=== PATIENT | male | born 1980 | race Caucasian/White ===

== ENCOUNTER 2023-03-09 13:54 | Emergency (ER) | payer OTHER, SELFPAY ==
[2023-03-09 13:58] VITALS: BP 130/90; PULSE 72; RESP 18; TEMP 36.7; O2SAT 99; BMI 31.9
--- NOTE | 2023-03-09 14:10 | ED.GENADUL1 ---
HPI - General Adult General Chief complaint: Back Pain/Injury Stated complaint: FLANK PAIN Time Seen by Provider: 03/09/23 13:56 Source: patient Mode of arrival: walk-in Limitations: no limitations History of Present Illness HPI narrative: patient is a 42-year-old male who presents to the emergency department for the evaluation of thoracic back pain for the last five days. He states the pain comes and goes. He denies any mechanism of injury, recent traumas or surgeries. He has had no fevers, chills, cough, congestion. He states pain is not worse with movement. He has been seen in this emergency department previously for low back pain related to spondylolisthesis. He has no history of heart or lung problems. He has no chest pain or shortness of breath complaints. He states the pain radiates from the thoracic spine around the bilateral flanks to the upper abdomen. He states it is a sharp pain that radiates from the spine and around to the abdomen and then resolves. He states pain is 8/10 at this time, he is resting comfortably on the cart and speaking easily. He has had no swelling to the arms or legs. He denies urinary symptoms. He has had no vomiting or diarrhea. No history of heart or lung problems, no DVT or PE. Related Data Previous Rx's Medication Instructions Recorded methocarbamol 750 mg tablet 750 mg PO TID PRN pain #20 tabs 03/09/23 naproxen sodium 550 mg tablet 550 mg PO BID PRN pain #10 tabs 03/09/23 Allergies Allergy/AdvReac Type Severity Reaction Status Date / Time No Known Drug Allergies Allergy Verified 03/09/23 13:58 Review of Systems ROS Constitutional Denies: fever or chills Ears, nose, mouth, and throat Denies: throat pain Cardiovascular Denies: chest pain Respiratory Denies: shortness of breath, cough or coughing up blood Gastrointestinal Reports: abdominal pain; Denies: nausea or vomiting Musculoskeletal Reports: back pain; Denies: neck pain, extremity pain or extremity swelling Integumentary/Breast Denies: rash Neurological Denies: headache Allergic/Immunologic Denies: hives Exam Narrative Exam Narrative: Gen.: Awake, alert, in no distress Head: Normocephalic, atraumatic ENT: Moist mucous membranes Respiratory: No respiratory distress, lungs clear bilaterally Cardio: Regular rate and rhythm Gastrointestinal: Abdomen is soft, nondistended and nontender to palpation back: Patient complains of pain at the level of the mid thoracic spine centrally, no obvious deformity or step-off, no bony tenderness to palpation Extremities: Moves extremities equally, no pedal edema Psych: Normal mood and affect Neuro: No focal neuro deficit Skin: Warm, dry, intact Constitutional Vital Signs, click to edit/add: Last Vital Signs Temp 98.1 F 03/09/23 13:58 Pulse 72 03/09/23 13:58 Resp 18 03/09/23 13:58 BP 130/90 03/09/23 13:58 Pulse Ox 99 03/09/23 13:58 O2 Del Method Room Air 03/09/23 13:58 Course Vital Signs Vital signs: Vital Signs Temperature 98.1 F 03/09/23 13:58 Pulse Rate 72 03/09/23 13:58 Respiratory Rate 18 03/09/23 13:58 Blood Pressure 130/90 03/09/23 13:58 Pulse Oximetry 99 03/09/23 13:58 Oxygen Delivery Method Room Air 03/09/23 13:58 Temperature 98.1 F 03/09/23 13:58 Pulse Rate 72 03/09/23 13:58 Respiratory Rate 18 03/09/23 13:58 Blood Pressure 130/90 03/09/23 13:58 Pulse Oximetry 99 03/09/23 13:58 Oxygen Delivery Method Room Air 03/09/23 13:58 Medical Decision Making MDM Narrative Medical decision making narrative: patient treated with Toradol and Norflex in the Emergency Room, lab studies including d-dimer, LFTs, urine specimen and creatinine are all within normal limits. Abdominal x-rays and chest x-ray with no evidence of acute cardiopulmonary changes. Patient with no bony point tenderness along the thoracic spine or posterior chest wall. He is discharged home with anti-inflammatory and muscle relaxant,, follow-up with PCP and return to the Emergency Room if symptoms change or worsen. Patient reevaluated by attending physician prior to discharge. Medical Records Medical records reviewed: Yes I reviewed the patient's medical records Lab Data Lab results reviewed: Yes I reviewed the patient's lab results Labs: Lab Results 03/09/23 03/09/23 03/09/23 Range/Units 14:05 14:25 14:40 WBC 7.6 (4.0-11.0) 10^3/uL RBC 4.83 (4.70-6.10) 10^6/uL Hgb 15.8 (14.0-18.0) g/dL Hct 47.7 (42.0-54.0) % MCV 98.8 H (80.0-94.0) fL MCH 32.7 (25.9-34.0) pg MCHC 33.1 (29.9-35.2) g/dL RDW 12.8 (11.0-15.0) % Plt Count 162 (150-450) 10^3/uL MPV 10.7 (9.5-13.5) fL Neut % (Auto) 55.7 (43.0-75.0) % Lymph % (Auto) 35.4 (20.5-60.0) % [place] % (Auto) 5.4 (1.7-12.0) % Eos % (Auto) 3.0 (0.9-7.0) % Baso % (Auto) 0.4 (0.2-2.0) % Neut # (Auto) 4.2 (1.4-6.5) 10^3/uL Lymph # (Auto) 2.7 (1.2-3.8) 10^3/uL [place] # (Auto) 0.4 (0.3-0.8) 10^3/uL Eos # (Auto) 0.2 (0.0-0.7) 10^3/uL Baso # (Auto) 0.0 (0.0-0.1) 10^3/uL Abs Immat Gran (auto) 0.01 (0.00-0.03) 10^3/uL Imm/Tot Granulo (auto) 0.1 (0.0-0.5) % D-Dimer 0.21 (<=0.59) mg/L FEU Sodium 139 (136-145) mmol/L Potassium 4.6 (3.5-5.1) mmol/L Chloride 106 (98-107) mmol/L Carbon Dioxide 28.8 (21.0-32.0) mmol/L Anion Gap 8.8 BUN 10.0 (7.0-18.0) mg/dL Creatinine 1.06 (0.70-1.30) mg/dL Est GFR ( Amer) >60 (>=60) Est GFR (Non-Af Amer) >60 (>=60) BUN/Creatinine Ratio 9.4 Glucose 111 H (74-106) mg/dL Calcium 9.0 (8.5-10.1) mg/dL Total Bilirubin 0.9 (0.2-1.0) mg/dL AST 30 (15-37) U/L ALT 26 (16-63) U/L Alkaline Phosphatase 92 (46-116) U/L Total Protein 7.8 (6.4-8.2) g/dL Albumin 4.4 (3.4-5.0) g/dL Globulin 3.4 g/dL Albumin/Globulin Ratio 1.3 Lipase 42.0 L (73.0-393.0) U/L Urine Color Lt. yellow (YELLOW) Urine Clarity Clear (CLEAR) Urine pH 7.0 (5.0-9.0) Ur Specific [place] 1.015 (1.005-1.025) Urine Protein Negative (NEG/TRACE) mg/dL Urine Glucose (UA) Negative (NEGATIVE) mg/dL Urine Ketones Negative (NEGATIVE) mg/dL Urine Occult Blood Negative (NEGATIVE) Urine Nitrite Negative (NEGATIVE) Urine Bilirubin Negative (NEGATIVE) Urine Urobilinogen 0.2 (0.2-1.0) EU/dL Ur Leukocyte Esterase Negative (NEGATIVE) Imaging Data Abdominal x-ray: Attestation: I have reviewed the pertinent imaging results. Radiologist's impression: Procedure: XR acute abdomen series EXAM: XR acute abdomen series HISTORY: Thoracic pain into bilateral flanks COMPARISON: None. TECHNIQUE: 4 view(s) of the abdomen. FINDINGS: No bowel distention. No free air or pneumatosis identified. Normal stool burden. No abnormal mass or calcification. The osseous and soft tissue structures are unremarkable. The lungs are clear. The cardiomediastinal silhouette is unremarkable. IMPRESSION: 1. No acute process. Electronically authenticated by: MORELIA THORNE Date: 03/09/2023 16:06 Discharge Plan Discharge Chief Complaint: Back Pain/Injury Clinical Impression: Thoracic back pain Patient Disposition: Home, Self-Care Time of Disposition Decision: 16:10 Condition: Good Prescriptions / Home Meds: New naproxen sodium 550 mg tablet 550 mg PO BID PRN (Reason: pain) Qty: 10 0RF methocarbamol 750 mg tablet 750 mg PO TID PRN (Reason: pain) Qty: 20 0RF Instructions: Thoracic Pain (ED) Stand Alone Forms: Portal Instructions Referrals: Physician,Non-Staff, MD [Primary Care Provider] - 1 week
[2023-03-09] MEDS: KETOROLAC TROMETHAMINE 30 MG/ML VIAL IVP (14:16)
[2023-03-09] MEDS: ORPHENADRINE 60 MG/ 2 ML VIAL IV (14:16)
[2023-03-09 14:41] LABS: Alanine Aminotransferase 26 U/L (16-63); Albumin Globulin Ratio 1.3; Albumin Level 4.4 g/dL (3.4-5.0); Alkaline Phosphatase 92 U/L (46-116); Anion Gap 8.8; Aspartate Amino Transferase 30 U/L (15-37); BUN Creatinine Ratio 9.4; Bilirubin Total 0.9 mg/dL (0.2-1.0); Carbon Dioxide 28.8 mmol/L (21.0-32.0); Chloride 106 mmol/L (98-107); Estimated GFR (African America >60 (>=60); Estimated GFR (Non-African Ame >60 (>=60); Globulin 3.4 g/dL; Glucose 111 mg/dL (74-106); Potassium 4.6 mmol/L (3.5-5.1); Sodium 139 mmol/L (136-145); Total Protein 7.8 g/dL (6.4-8.2)
[2023-03-09 14:53] LABS: Bilirubin Urine NEGATIVE (NEGATIVE); Blood Urine NEGATIVE (NEGATIVE); Clarity Urine CLEAR (CLEAR); Color Urine LT. YELLOW (YELLOW); Glucose Urine UA NEGATIVE (NEGATIVE); Ketones Urine NEGATIVE (NEGATIVE); Leukocyte Esterase Urine NEGATIVE (NEGATIVE); Nitrite Urine NEGATIVE (NEGATIVE); Protein Urine NEGATIVE (NEG/TRACE); Specific Gravity Urine 1.015 (1.005-1.025); Urobilinogen Urine 0.2 EU/dL (0.2-1.0)
[2023-03-09 14:58] LABS: Urine Microscopic Indicated NO
[2023-03-09 15:06] LABS: Basophils Percent Auto 0.4 % (0.2-2.0); Eosinophils Absolute Auto 0.2 10^3/uL (0.0-0.7); Hematocrit 47.7 % (42.0-54.0); Hemoglobin 15.8 g/dL (14.0-18.0); Immature Granulocytes Abs Auto 0.01 10^3/uL (0.00-0.03); Immature Granulocytes Pct Auto 0.1 % (0.0-0.5); Lymphocytes Absolute Auto 2.7 10^3/uL (1.2-3.8); Lymphocytes Percent Auto 35.4 % (20.5-60.0); Mean Corpuscular HGB Conc 33.1 g/dL (29.9-35.2); Mean Corpuscular Hemoglobin 32.7 pg (25.9-34.0); Mean Corpuscular Volume 98.8 fL (80.0-94.0); Mean Platelet Volume 10.7 fL (9.5-13.5); Monocytes Absolute Auto 0.4 10^3/uL (0.3-0.8); Monocytes Percent Auto 5.4 % (1.7-12.0); Neutrophils Absolute Auto 4.2 10^3/uL (1.4-6.5); Neutrophils Percent Auto 55.7 % (43.0-75.0); Platelet Count 162 10^3/uL (150-450); Red Blood Count 4.83 10^6/uL (4.70-6.10); Red Cell Distribution Width 12.8 % (11.0-15.0); White Blood Count 7.6 10^3/uL (4.0-11.0)
[2023-03-09 15:21] LABS: D Dimer 0.21 mg/L FEU (<=0.59)
--- NOTE | 2023-03-09 15:27 | XR_ITS ---
The [address] [address] Patient Name: VALENTIN SIDHU MRN: [id number] date: 1980 Sex: M Assigned Patient Location: ER Current Patient Location: ER Accession/Order Number: [id number] Exam Date: 03/09/2023 15:40 Report Date: 03/09/2023 16:06 At the request of: SAUL ELLIS Procedure: XR acute abdomen series EXAM: XR acute abdomen series HISTORY: Thoracic pain into bilateral flanks COMPARISON: None. TECHNIQUE: 4 view(s) of the abdomen. FINDINGS: No bowel distention. No free air or pneumatosis identified. Normal stool burden. No abnormal mass or calcification. The osseous and soft tissue structures are unremarkable. The lungs are clear. The cardiomediastinal silhouette is unremarkable. XR/XR acute abdomen series IMPRESSION: 1. No acute process. Electronically authenticated by: MORELIA THORNE Date: 03/09/2023 16:06
== END 2023-03-09 16:32 | disposition home or self-care (01) ==
PROVIDERS: Physician Assistant; Emergency Provider Emergency Medicine Emergency Medical Services
DX: M54.6 Pain in thoracic spine (principal)
CPT/HCPCS: 36415; 74022; 80053; 81003; 83690; 85025; 85378; 96374; 96375; 99285

== ENCOUNTER 2023-08-13 11:49 | Emergency (ER) | payer OTHER, SELFPAY ==
[2023-08-13 11:53] VITALS: BP 135/85; PULSE 83; RESP 18; TEMP 36.6; O2SAT 98; BMI 31.6
--- NOTE | 2023-08-13 12:08 | CT_ITS ---
The [address] [address] Patient Name: VALENTIN SIDHU MRN: [id number] date: 1980 Sex: M Assigned Patient Location: ER Current Patient Location: ER Accession/Order Number: [id number] Exam Date: 08/13/2023 12:14 Report Date: 08/13/2023 12:28 At the request of: YESICA TELLO Procedure: CT head/brain wo con CT head without contrast, 08/13/2023. HISTORY: Headache. Facial pain. Paresthesias on left side of face. COMPARISON: None. TECHNIQUE: Noncontrast axial CT images obtained through the head. Reconstructions were obtained in the sagittal and coronal planes. Dose reduction techniques were achieved by using automated exposure control and/or adjustment of mA and/or kV according to patient size and/or use of iterative reconstruction technique. FINDINGS: Paranasal sinuses are clear. Mastoid air cells are clear. Skull base is intact. No skull lesion. Orbital contents are unremarkable. Extracranial soft tissue structures are unremarkable. The ventricles are normal in size. No hydrocephalus. No extra-axial fluid collections. No acute intracranial hemorrhage. No mass. Khan matter and white matter differentiation is intact. No cerebral edema. CT/CT head/brain wo con IMPRESSION: Normal CT of the head. Electronically authenticated by: GABE BRADLEY Date: 08/13/2023 12:28
--- NOTE | 2023-08-13 12:08 | ED_ITS ---
HPI - General Adult General Chief complaint: Headache Stated complaint: L SIDE HEAD PAIN Time Seen by Provider: 08/13/23 11:56 Source: patient Mode of arrival: walk-in Limitations: no limitations History of Present Illness HPI narrative: 43-year-old male presents to the emergency department for pain on the left side of his head. It started 3 days ago and was not associated with any injury. He points to the angle of his jaw and it goes up onto his scalp and it feels like a cat of scratching him on his scalp. No ear drainage but his ear hurts. No weakness or numbness in his extremities. He has never had shingles. Related Data Previous Rx's Medication Instructions Recorded methocarbamol 750 mg tablet 750 mg PO TID PRN pain #20 tabs 03/09/23 naproxen sodium 550 mg tablet 550 mg PO BID PRN pain #10 tabs 03/09/23 ibuprofen 800 mg tablet 800 mg PO Q8H PRN pain #20 tabs 08/13/23 Allergies Allergy/AdvReac Type Severity Reaction Status Date / Time codeine AdvReac Intermediate Agitated Verified 08/13/23 11:53 Review of Systems ROS Narrative A ten point review of systems is negative except as noted above. Exam Narrative Exam Narrative: Nurses note and vital signs reviewed and patient is not hypoxic. General: The patient appears well and in no apparent distress. Patient is re sting comfortably on cart. Skin: Warm, dry, no pallor noted. There is no rash noted. Head: Normocephalic, atraumatic jaw has full range of motion. There is no erythema or rash on his face. There is no swelling. EOMI. PERRL Ears, Nose, Mouth, and Throat: oral mucosa is moist. Nares patent. Mouth without vesicles. Ear canals patent. Tm's without Erythema Cardiovascular: Regular Rate and Rhythm Respiratory: Patient is in no distress, no accessory muscle use, lungs are clear to auscultation, no wheezing, rales or rhonchi Back: non-tender GI: no tenderness to palpation, no masses appreciated. No rebound, guarding, or rigidity noted. Musculoskeletal: The patient has no evidence of calf tenderness, no pitting edema, symmetrical pulses noted bilaterally Neurological: A&O, normal speech; motor strength intact in his facial muscles. Psychiatric: Cooperative Constitutional Vital Signs, click to edit/add: Last Vital Signs Temp 97.8 F 08/13/23 11:53 Pulse 83 08/13/23 11:53 Resp 18 08/13/23 11:53 BP 135/85 08/13/23 11:53 Pulse Ox 98 08/13/23 11:53 Course Vital Signs Vital signs: Vital Signs Temperature 97.8 F 08/13/23 11:53 Pulse Rate 83 08/13/23 11:53 Respiratory Rate 18 08/13/23 11:53 Blood Pressure 135/85 08/13/23 11:53 Pulse Oximetry 98 08/13/23 11:53 Temperature 97.8 F 08/13/23 11:53 Pulse Rate 83 08/13/23 11:53 Respiratory Rate 18 08/13/23 11:53 Blood Pressure 135/85 08/13/23 11:53 Pulse Oximetry 98 08/13/23 11:53 Medical Decision Making MDM Narrative Medical decision making narrative: CT is negative. Physical exam is normal. There is no rash to suggest herpes zoster but he was advised that if he develops a rash she return to the emergency department or contact his PCP. He does not want anything stronger for pain. Treatment diagnosis and follow-up were discussed with the patient Differential Diagnosis Differential Diagnosis: Headache, herpes zoster, neuralgia Imaging Data CT scan - head: Radiologist's impression: ITS Impressions Head CT 08/13/23 12:08 IMPRESSION: Normal CT of the head. Electronically authenticated by: GABE BRADLEY Date: 08/13/2023 12:28 Discharge Plan Discharge Chief Complaint: Headache Clinical Impression: Cephalgia Patient Disposition: Home, Self-Care Time of Disposition Decision: 13:31 Condition: Good Mode of Transportation: Private Vehicle Prescriptions / Home Meds: New ibuprofen 800 mg tablet 800 mg PO Q8H PRN (Reason: pain) Qty: 20 0RF No Action naproxen sodium 550 mg tablet 550 mg PO BID PRN (Reason: pain) Qty: 10 0RF methocarbamol 750 mg tablet 750 mg PO TID PRN (Reason: pain) Qty: 20 0RF Instructions: Acute Headache (ED) Stand Alone Forms: Portal Instructions Referrals: Physician,Non-Staff, MD [Primary Care Provider] - 1 week
== END 2023-08-13 13:38 | disposition home or self-care (01) ==
PROVIDERS: Emergency Provider Emergency Medicine
DX: R51.9 Headache, unspecified (principal)
CPT/HCPCS: 70450; 99284

== ENCOUNTER 2024-04-19 11:32 | Emergency (ER) | payer OTHER, SELFPAY ==
[2024-04-19 11:34] VITALS: BP 117/67; PULSE 111; TEMP 36.6; O2SAT 97; BMI 29.9
--- OUTSIDE RECORDS SUMMARY | 2024-04-19 11:39 | XMS_ITS | CCD ---
Author Organization [facility] Care Team Providers Care Courtroom Clerk Name Role Phone DR SISI THAKKAR Attending Unavailable BIJAN, DR SISI Curtis Consulting Unavailable DR SISI THAKKAR Admitting Unavailable REQUEST, NONE LISTED Primary Care Unavaila Morgan Chowdhury Consulting Unavailable Lucy Connelly Unavailable Luzma Albert Unavailable Allergies Allergy Classification Reported Allergen(s) Allergy Type Date of Onset Reaction(s) Facility (1 source) Codeine Drug Allergy 3 [facility] (1 source) Ketorolac Drug Allergy 3 [facility] (2 sources) Codeine Drug Allergy vomiting [facility] Other (2 sources) traMADol Drug Allergy anger [facility] Other (1 source) Shellfish Drug allergy only when consumed, hives [facility] [employer] Other Problems Active Problems Problem Classification Problem Date Documented Da te Episodic/Chronic Substance-related disorders (1 source) Nicotine dependence, cigarettes, uncomplicated; Translations: [NICOTINE DEPEND CIGARETTES UNCOMP] Onset: 11-19-2020 Chronic Past or Other Problems Problem Classification Problem Date Documented Da te Episodic/Chronic Immunizations and screening for infectious disease (1 source) Contact with and (suspected) exposure to other viral communicable diseases; Translations: [Contact with and (suspected) exposure to other viral communicable diseases Z20.828] Onset: 04-15-2021 Resolved: 04-15-2021 Episodic Other upper respiratory disease (3 sources) Dysphonia; Translations: [DYSPHONIA] Onset: 11-18-2020 Episodic Other upper respiratory infections (1 source) Acute laryngitis; Translations: [ACUTE LARYNGITIS] Onset: 11-19-2020 Episodic Viral infection (1 source) COVID-19; Translations: [COVID-19 U07.1] Onset: 04-15-2021 Resolved: 04-15-2021 Results Test Name Value Interpretation Reference Range Facil ity XR NECK SOFT TISSUEon 2020 XR NECK SOFT TISSUE EXAM: XR NECK SOFT TISSUE HISTORY: Dyspnea COMPARISON: None. TECHNIQUE: 2 views submitted FINDINGS: There is no evidence for prevertebral soft tissue swelling. No epiglottic enlargement is appreciated. No soft tissue inflammation visualized. There is no evidence for subglottic stenosis on the AP radiograph. No destructive osseous lesion is visualized. IMPRESSION: Unremarkable exam. Electronically authenticated by: MORGAN GROSS Date: 2020-11-18 02:47 Normal [facility] Vital Signs Date Time Vital Sign Value Performing Clinician Facility 08-13-2023 11:05-0500 Body height 177.8 cm Luzma Bety Other [facility] Other 08-13-2023 11:05-0500 Body mass index (BMI) [Ratio] 32.14 kg/m2 Luzma Bety Other [facility] Other 08-13-2023 11:05-0500 Body temperature 97.9 [degF] Luzma Bety Other [facility] Other 08-13-2023 11:05-0500 Body weight 101.61 kg Luzma Bety Other [facility] Other 08-13-2023 11:05-0500 Diastolic blood pressure 82 mm[Hg] Luzma Bety Other [facility] Other 08-13-2023 11:05-0500 Respiratory rate 18 /min Luzma Bety Other [facility] Other 08-13-2023 11:05-0500 SaO2% (BldA) [Mass fraction] 99 % Luzma Bety Other [facility] Other 08-13-2023 11:05-0500 Systolic blood pressure 131 mm[Hg] Luzmaankit Daleyb Other [facility] Other 04-15-2021 16:30-0400 Body height 177.8 cm Lucy Ginty Other [facility] Other 04-15-2021 16:30-0400 Body mass index (BMI) [Ratio] 28.55 kg/m2 Lucy Ginty Other [facility] Other 04-15-2021 16:30-0400 Body weight 90.27 kg Lucy Ginty Other [facility] Other Encounters Encounter Date Encounter Type Care Provider Facility Start: 08-13-2023 End: 08-13-2023 ambulatory Luzma Daleyb Other [facility] Other Start: 08-13-2023 Patient encounter procedure Luzma Bety [facility] Start: 04-15-2021 Office outpatient vi sit 15 minutes Lucy Ginty [facility] Start: 11-18-2020 End: 11-18-[address] SISI THAKKAR Facility: Payers Date Payer Category Payer Unknown [id number] 1958 Unknown [id number] Unknown [id number] Social History Date Type Detail Facility Sex Assigned At [facility] Other Evaluation note 08-13-2023 Note Date & Type Note Facility 08-13-2023 Evaluation note Encounter Date Diagnosis Assessment Notes Aug, Other Patient is a 43-year-old male that presents to urgent care complaining of pain on the top of the left side of the head with pain near the left ear. Patient endorses dizziness and feeling disoriented but denies any facial droop, unilateral weakness, numbness or tingling. Patient is alert and oriented during the visit. Patient denies any recent injury or history of vertigo. He denies any other illnesses. He states he is otherwise healthy. Patient states the pain occurred suddenly today and feels like his head is burning on fire and that the dizziness started this morning. Patient was referred to the ER at this time for the dizziness and complaints of disorientation. Patient did want to drive himself, did not want squad called. [facility] Other Evaluation note 04-15-2021 Note Date & Type Note Facility 04-15-2021 Evaluation note Encounter Date Diagnosis Assessment Notes Apr, Contact with and (suspected) exposure to other viral communicable diseases (ICD-10 - Z20.828) Apr, COVID-19 (ICD-10 - U07.1) Rapid COVID test performed in office today. Advised patient that test was positive. Instructed patient to isolate per CDC guidelines for 10 days from symptom onset. May return to work/activities outside home after isolation period as long as symptoms are improving and has been afebrile for 24 hours without use of antipyretic. Advised patient that health dept. will be in contact as results are reported to them. Advised patient that treatment of COVID is with viral supportive care. Tylenol/Motrin as needed for body aches/fever. Increase fluids and rest. Encouraged use of cool mist humidifier. Follow-up with PCP to advise of positive result and further management need. Immediate eval for SOB, difficulty, chest pain, fevers that do not break with antipyretic or any other concerning symptoms as reviewed on patient education handout. Patient verbalizes understanding and is agreeable to treatment plan. Patient left in stable condition Apr, Other Additional time spent conducting pre-visit phone call, screening for symptoms, instructions on social distancing, application and removal of PPE, and cleaning of examination room, equipment and supplies was preformed. Patient education given for testing methodology and results. Patient care instructions given in writting by [facility] Care At Home document [facility] Other History general Narrative - Reported Note Date & Type Note Facility History general Narrative - Reported Type Medical History DDD/DD Medical History spondylolithesis Surgical History tonsillectomy [facility] Other Summary Purpose Family History No Family History Records Found Advance Directives No Advanced Directives Records Found Additional Source Comments (unrecognized sect ion and content) No Status Records Found INFORMATION SOURCE (unrecogn ized section and content) DATE CREATED AUTHOR 10/19/2021 [facility] REASON FOR VISIT (unrecogniz ed section and content) #27 SILVER URIARTE ESCAPE COVID EXPOSURE, BODYACHES, LOSS OF SMELLLEFT EAR PAIN FOR RECORDS PERTAINING TO PATIENTS WHO ARE OR HAVE BEEN ENROLLED IN A CHEMICAL DEPENDENCY/SUBSTANCEABUSE PROGRAM, SOME INFORMATION MAY BE OMITTED. This clinical summary was aggregated from multiple sources. Caution should be exercised in using it in the provision of clinical care. This summary normalizes information from multiple sources, and as a consequence, information in this document may materially change the coding, format and clinical context of patient data. In addition, data may be omitted in some cases. CLINICAL DECISIONS SHOULD BE BASED ON THE PRIMARY CLINICAL RECORDS. [employer] [facility]. provides no warranty or guarantee of the accuracy or completeness of information in this document.
[2024-04-19] MEDS: FAMOTIDINE/PF 20 MG/2 ML VIAL IV (11:51)
[2024-04-19] MEDS: METHYLPREDNISOLONE SOD SUCC PF 125 MG/2 ML VIAL IVP (11:51)
[2024-04-19 11:53] LABS: Basophils Percent Auto 0.3 % (0.2-2.0); Eosinophils Absolute Auto 0.1 10^3/uL (0.0-0.7); Eosinophils Percent Auto 1.3 % (0.9-7.0); Hematocrit 52.9 % (42.0-54.0); Hemoglobin 18.2 g/dL (14.0-18.0); Immature Granulocytes Abs Auto 0.01 10^3/uL (0.00-0.03); Immature Granulocytes Pct Auto 0.1 % (0.0-0.5); Lymphocytes Absolute Auto 3.1 10^3/uL (1.2-3.8); Lymphocytes Percent Auto 39.9 % (20.5-60.0); Mean Corpuscular HGB Conc 34.4 g/dL (29.9-35.2); Mean Corpuscular Hemoglobin 32.7 pg (25.9-34.0); Mean Platelet Volume 10.2 fL (9.5-13.5); Monocytes Absolute Auto 0.3 10^3/uL (0.3-0.8); Monocytes Percent Auto 3.9 % (1.7-12.0); Neutrophils Absolute Auto 4.2 10^3/uL (1.4-6.5); Neutrophils Percent Auto 54.5 % (43.0-75.0); Platelet Count 221 10^3/uL (150-450); Red Blood Count 5.57 10^6/uL (4.70-6.10); White Blood Count 7.6 10^3/uL (4.0-11.0)
[2024-04-19 12:14] LABS: Alanine Aminotransferase 44 U/L (16-63); Albumin Globulin Ratio 1.1; Albumin Level 4.1 g/dL (3.4-5.0); Alkaline Phosphatase 112 U/L (46-116); Anion Gap 14.8; Aspartate Amino Transferase 19 U/L (15-37); BUN Creatinine Ratio 11.5; Bilirubin Total 0.4 mg/dL (0.2-1.0); Calcium 9.9 mg/dL (8.5-10.1); Carbon Dioxide 25.5 mmol/L (21.0-32.0); Chloride 104 mmol/L (98-107); Estimated GFR (African America >60 (>=60 mL/min/1.73m^2); Estimated GFR (Non-African Ame >60 (>=60 mL/min/1.73m^2); Globulin 3.9 g/dL; Glucose 135 mg/dL (74-106); Potassium 4.3 mmol/L (3.5-5.1); Sodium 140 mmol/L (136-145)
--- NOTE | 2024-04-19 14:24 | ED_ITS ---
HPI HPI - General Adult General Chief complaint: Weakness Stated complaint: EXTREMITY SWELLING, PAIN, RASH Time Seen by Provider: 04/19/24 11:43 Source: patient Mode of arrival: walk-in Limitations: no limitations History of Present Illness HPI narrative: The patient presented to us after he just had dinner yesterday from his regular [email or web address] restaurant, the patient mentioned that few hours after that almost 2 hours that he started having some itching in his upper and lower extremities with sensation of swelling in his fingers He denies any itching at any time or any other place or any rash that developed other than his feet and his hands he denies any difficulty breathing or any tongue swelling The patient denies any exposure to any new environmental changes he also denies any exposure to any new drug or medication Related Data Previous Rx's ?Medication ?Instructions ?Recorded methocarbamol 750 mg tablet 750 mg PO TID PRN pain #20 tabs 03/09/23 naproxen sodium 550 mg tablet 550 mg PO BID PRN pain #10 tabs 03/09/23 ibuprofen 800 mg tablet 800 mg PO Q8H PRN pain #20 tabs 08/13/23 diphenhydramine HCl 25 mg tablet 25 mg PO TID PRN allergic reaction 04/19/24 (Benadryl Allergy) #10 tabs famotidine 20 mg tablet (Pepcid) 20 mg PO BID #10 tabs 04/19/24 prednisone 20 mg tablet 40 mg (2 x 20 mg) PO DAILY 3 days 04/19/24 #6 tabs Allergies Allergy/AdvReac Type Severity Reaction Status Date / Time codeine AdvReac Intermediate Agitated Verified 08/13/23 11:53 Opioid HPI Opioid Management Most Recent Opioid Data: Last Pain Scale 6 03/09/23 15:10 03/09/23 Review of Systems ROS Status of ROS 10 or more systems reviewed and unremark able except as noted in history and below PFSH PFSH Social History Little interest or pleasure in doing things: not at all Feeling down, depressed, or hopeless: not at all Exam Narrative Exam Narrative: Nurses notes and vital signs reviewed and patient is not hypoxic. Skin examination: The patient have a macular rash on the dorsum of the foot bilaterally as well as the hand but there is no other rash that was detected on the skin the patient have a good pulse bilaterally anterior tibial in both feet as well as in his radial General: Well-appearing and in no apparent distress. Skin: Warm, dry, no pallor noted. No rash. Head: Normocephalic, atraumatic. Neck: Supple, non-tender. Eye: Pupils are equal, round and EOMI. No scleral icterus. Ears, Nose, Mouth, and Throat: TM are clear, no nasal mucosal hypertrophy. Oral mucosa is moist, no posterior oropharynx erythema, uvula is mid-line Cardiovascular: Regular Rate and Rhythm without murmur, gallop or rub. Respiratory: No accessory muscle use or respiratory distress. Lungs are clear to auscultation, no wheezing, rales or rhonchi Chest Wall: no tenderness Back: No midline thoracic or lumbar vertebral tenderness. No CVA tenderness Musculoskeletal: normal ROM, no calf or popliteal tenderness, no lower extremity edema/swelling GI: Abdomen is soft, non-distended. Normal bowel sounds. No masses appreciated. No tenderness to palpation. No rebound, guarding, or rigidity noted. Neurological: A&O x4. No cranial nerve dysfunction observed. No truncal ataxia. Moves all extremities. Sensation intact. Psychiatric: Cooperative and interactive. Normal mood and affect. Constitutional Vital Signs, click to edit/add: Last Vital Signs Temp 97.9 F 04/19/24 11:34 Pulse 111 H 04/19/24 11:34 Resp 18 04/19/24 11:34 BP 117/67 04/19/24 11:34 Pulse Ox 97 04/19/24 11:34 O2 Del Method Room Air 04/19/24 11:34 Course Vital Signs Vital signs: Vital Signs Temperature 97.9 F 04/19/24 11:34 Pulse Rate 111 H 04/19/24 11:34 Respiratory Rate 18 04/19/24 11:34 Blood Pressure 117/67 04/19/24 11:34 Pulse Oximetry 97 04/19/24 11:34 Oxygen Delivery Method Room Air 04/19/24 11:34 Temperature 97.9 F 04/19/24 11:34 Pulse Rate 111 H 04/19/24 11:34 Respiratory Rate 18 04/19/24 11:34 Blood Pressure 117/67 04/19/24 11:34 Pulse Oximetry 97 04/19/24 11:34 Oxygen Delivery Method Room Air 04/19/24 11:34 Medical Decision Making [facility] Narrative Medical decision making narrative: The patient blood workup CBC and chemistry showed no acute pathology His presentation with itching could be secondary to allergic reaction although I did explain to the patient that I provided him initially with a steroid after which she was feeling much better he tried some Benadryl before arrival. The rash is gone but he still having this feeling of swelling in his fingers and toes Explained to the patient that right now we will continue the prednisone for the next 3 days with instruction to hydrate well and come back in case of any worsening of symptoms and monitor for any new symptoms The patient is to follow up with primary care physician in next 2-3 days or to return to the emergency department should any of the signs or symptoms worsen or new symptoms develop. The patient agrees with the following Diagnosis and Treatment plan and the patient will be discharged home. Lab Data Labs: Lab Results 04/19/24 Range/Units 11:41 WBC 7.6 (4.0-11.0) 10^3/uL RBC 5.57 (4.70-6.10) 10^6/uL Hgb 18.2 H (14.0-18.0) g/dL Hct 52.9 (42.0-54.0) % MCV 95.0 H (80.0-94.0) fL MCH 32.7 (25.9-34.0) pg MCHC 34.4 (29.9-35.2) g/dL RDW 12.0 (11.0-15.0) % Plt Count 221 (150-450) 10^3/uL MPV 10.2 (9.5-13.5) fL Neut % (Auto) 54.5 (43.0-75.0) % Lymph % (Auto) 39.9 (20.5-60.0) % [place] % (Auto) 3.9 (1.7-12.0) % Eos % (Auto) 1.3 (0.9-7.0) % Baso % (Auto) 0.3 (0.2-2.0) % Neut # (Auto) 4.2 (1.4-6.5) 10^3/uL Lymph # (Auto) 3.1 (1.2-3.8) 10^3/uL [place] # (Auto) 0.3 (0.3-0.8) 10^3/uL Eos # (Auto) 0.1 (0.0-0.7) 10^3/uL Baso # (Auto) 0.0 (0.0-0.1) 10^3/uL Abs Immat Gran (auto) 0.01 (0.00-0.03) 10^3/uL Imm/Tot Granulo (auto) 0.1 (0.0-0.5) % Sodium 140 (136-145) mmol/L Potassium 4.3 (3.5-5.1) mmol/L Chloride 104 (98-107) mmol/L Carbon Dioxide 25.5 (21.0-32.0) mmol/L Anion Gap 14.8 BUN 15.0 (7.0-18.0) mg/dL Creatinine 1.30 (0.70-1.30) mg/dL Est GFR ( Amer) >60 (>=60 mL/min/1.73m^2) Est GFR (Non-Af Amer) >60 (>=60 mL/min/1.73m^2) BUN/Creatinine Ratio 11.5 Glucose 135 H (74-106) mg/dL Calcium 9.9 (8.5-10.1) mg/dL Total Bilirubin 0.4 (0.2-1.0) mg/dL AST 19 (15-37) U/L ALT 44 (16-63) U/L Alkaline Phosphatase 112 (46-116) U/L Total Protein 8.0 (6.4-8.2) g/dL Albumin 4.1 (3.4-5.0) g/dL Globulin 3.9 g/dL Albumin/Globulin Ratio 1.1 Discharge Plan Discharge Chief Complaint: Weakness Clinical Impression: Allergic reaction Patient Disposition: Home, Self-Care Time of Disposition Decision: 13:09 Condition: Good Prescriptions / Home Meds: New prednisone 20 mg tablet 40 mg PO DAILY 3 Days Qty: 6 0RF famotidine [Pepcid] 20 mg tablet 20 mg PO BID Qty: 10 0RF diphenhydramine HCl [Benadryl Allergy] 25 mg tablet 25 mg PO TID PRN (Reason: allergic reaction) Qty: 10 0RF No Action naproxen sodium 550 mg tablet 550 mg PO BID PRN (Reason: pain) Qty: 10 0RF methocarbamol 750 mg tablet 750 mg PO TID PRN (Reason: pain) Qty: 20 0RF ibuprofen 800 mg tablet 800 mg PO Q8H PRN (Reason: pain) Qty: 20 0RF Print Language: Hong Konger Instructions: General Allergic Reaction (ED) Referrals: Physician,Non-Staff, MD [Primary Care Provider] - 1 week Discharge Date/Time: 04/19/24 13:17
== END 2024-04-19 13:17 | disposition home or self-care (01) ==
PROVIDERS: Emergency Provider Emergency Medicine
DX: T78.40XA Allergy, unspecified, initial encounter (principal)
CPT/HCPCS: 36415; 80053; 85025; 96374; 96375; 99284; J2919

== ENCOUNTER 2024-04-20 15:55 | Emergency (ER) | payer OTHER, SELFPAY ==
[2024-04-20 16:01] VITALS: BP 129/75; PULSE 87; TEMP 36.6; O2SAT 100; BMI 30.1
--- OUTSIDE RECORDS SUMMARY | 2024-04-20 16:03 | XMS_ITS | CCD ---
Author Organization [facility] Care Team Providers Care Web Programmer Name Role Phone DR SISI THAKKAR Attending Unavailable BIJAN, DR SISI Curtis Consulting Unavailable DR SISI THAKKAR Admitting Unavailable REQUEST, NONE LISTED Primary Care Unavaila Morgan Chowdhury Consulting Unavailable Lucy Connelly Unavailable Luzma Albert Unavailable Allergies Allergy Classification Reported Allergen(s) Allergy Type Date of Onset Reaction(s) Facility (1 source) Codeine Drug Allergy 3 [facility] (1 source) Ketorolac Drug Allergy 3 [facility] (2 sources) Codeine Drug Allergy vomiting [facility] Other (2 sources) traMADol Drug Allergy anger [facility] Other (1 source) Shellfish Drug allergy only when consumed, hives [facility] [employer] Other Problems Active Problems Problem Classification Problem [...] by: MORGAN GROSS Date: 2020-11-18 02:[address] [facility] Vital Signs Date Time Vital Sign Value Performing Clinician Facility 08-13-2023 11:05-0500 Body height 177.8 cm Luzma Bety Other [facility] Other 08-13-2023 11:05-0500 Body mass index (BMI) [Ratio] 32.14 kg/m2 Luzma Bety Other [facility] Other 08-13-2023 11:05-0500 Body temperature 97.9 [degF] Luzma Bety Other [facility] Other 08-13-2023 11:05-0500 Body weight 101.61 kg Luzma Bety Other [facility] Other 08-13-2023 11:05-0500 Diastolic blood pressure 82 mm[Hg] Luzma Bety Other [facility] Other 08-13-2023 11:05-0500 Respiratory rate 18 /min Luzma Bety Other [facility] Other 08-13-2023 11:05-0500 SaO2% (BldA) [Mass fraction] 99 % Luzma Bety Other [facility] Other 08-13-2023 11:05-0500 Systolic blood pressure 131 mm[Hg] Luzmaankit Daleyb Other [facility] Other 04-15-2021 16:30-0400 Body height 177.8 cm Lucy Ginty Other [facility] Other 04-15-2021 16:30-0400 Body mass index (BMI) [Ratio] 28.55 kg/m2 Lucy Ginty Other [facility] Other 04-15-2021 16:30-0400 Body weight 90.27 kg Lucy Ginty Other [facility] Other Encounters Encounter Date Encounter Type Care Provider Facility Start: 08-13-2023 End: 08-13-2023 ambulatory Luzma Daleyb Other [facility] Other Start: 08-13-2023 Patient encounter procedure Luzma Bety [facility] Start: 04-15-2021 Office outpatient vi sit 15 minutes Lucy Ginty [facility] Start: 11-18-2020 End: 11-18-[address] SISI THAKKAR Facility: Payers Date Payer Category Payer Unknown [id number] 1958 Unknown [id number] Unknown [id number] Social History Date Type Detail Facility Sex Assigned At [facility] Other Evaluation note 08-13-2023 Note Date & [...] drive himself, did not want squad called. [facility] Other Evaluation note 04-15-2021 Note Date & [...] Patient care instructions given in writting by [facility] At Home document [facility] Other History general Narrative - Reported Note Date & Type Note Facility History general Narrative - Reported Type Medical History DDD/DD Medical History spondylolithesis Surgical History tonsillectomy [facility] Other Summary Purpose Family History No Family History Records Found Advance Directives No Advanced Directives Records Found Additional Source Comments (unrecognized sect ion and content) No Status Records Found INFORMATION SOURCE (unrecogn ized section and content) DATE CREATED AUTHOR 10/19/2021 [facility] REASON FOR VISIT (unrecogniz ed section and [...] BE BASED ON THE PRIMARY CLINICAL RECORDS. [employer] [facility]. provides no warranty or guarantee of the accuracy or completeness of information in this document.
--- NOTE | 2024-04-20 16:25 | XR_ITS ---
The [address] [address] Patient Name: VALENTIN SIDHU MRN: [id number] date: 1980 Sex: M Assigned Patient Location: ED.MAIN Current Patient Location: Accession/Order Number: [id number] Exam Date: 04/20/2024 16:55 Report Date: 04/20/2024 18:16 At the request of: PUJA BELLO Procedure: XR hand RT 2V EXAMINATION: XR hand RT 2V, , 04/20/2024 4:55 PM EDT INDICATION: pain HISTORY: Ordering Provider Reason for Exam: pain Technologist Note: Additional: COMPARISON: None. TECHNIQUE: Right hand x-ray: 3 view(s). FINDINGS: No acute fracture. Joint alignment is anatomic. Joint spaces are preserved. Soft tissues are within normal limits. XR/XR hand RT 2V IMPRESSION: No acute fracture or traumatic malalignment. Electronically authenticated by: TREVON SAENZ Date: 04/20/2024 18:16
[2024-04-20] MEDS: DIPHENHYDRAMINE HCL 50 MG/ML VIAL IV (16:44)
[2024-04-20 16:47] LABS: Basophils Percent Auto 0.2 % (0.2-2.0); Eosinophils Percent Auto 0.1 % (0.9-7.0); Hematocrit 47.1 % (42.0-54.0); Hemoglobin 16.4 g/dL (14.0-18.0); Immature Granulocytes Abs Auto 0.03 10^3/uL (0.00-0.03); Immature Granulocytes Pct Auto 0.3 % (0.0-0.5); Lymphocytes Absolute Auto 1.5 10^3/uL (1.2-3.8); Lymphocytes Percent Auto 15.2 % (20.5-60.0); Mean Corpuscular HGB Conc 34.8 g/dL (29.9-35.2); Mean Corpuscular Hemoglobin 33.2 pg (25.9-34.0); Mean Corpuscular Volume 95.3 fL (80.0-94.0); Mean Platelet Volume 10.2 fL (9.5-13.5); Monocytes Absolute Auto 0.2 10^3/uL (0.3-0.8); Neutrophils Percent Auto 82.2 % (43.0-75.0); Platelet Count 230 10^3/uL (150-450); Red Blood Count 4.94 10^6/uL (4.70-6.10); Red Cell Distribution Width 12.2 % (11.0-15.0); White Blood Count 9.7 10^3/uL (4.0-11.0)
[2024-04-20 17:01] LABS: Erythrocyte Sedimentation Rate 28 mm/hr (<=15)
[2024-04-20 17:10] LABS: Alanine Aminotransferase 36 U/L (16-63); Alkaline Phosphatase 104 U/L (46-116); Aspartate Amino Transferase 15 U/L (15-37); BUN Creatinine Ratio 7.1; Bilirubin Total 0.4 mg/dL (0.2-1.0); C Reactive Protein 0.93 mg/dL (<=0.50); Calcium 9.9 mg/dL (8.5-10.1); Carbon Dioxide 28.5 mmol/L (21.0-32.0); Chloride 103 mmol/L (98-107); Estimated GFR (African America >60 (>=60 mL/min/1.73m^2); Estimated GFR (Non-African Ame >60 (>=60 mL/min/1.73m^2); Glucose 123 mg/dL (74-106); Potassium 4.5 mmol/L (3.5-5.1); Sodium 140 mmol/L (136-145); Total Protein 7.9 g/dL (6.4-8.2)
[2024-04-20 17:11] LABS: Albumin Globulin Ratio 1.1; Albumin Level 4.2 g/dL (3.4-5.0); Globulin 3.7 g/dL
--- NOTE | 2024-04-20 17:24 | ED.ALLEREA1 ---
HPI - Allergic Reaction General Chief complaint: Allergic Reaction Stated complaint: Rash Time Seen by Provider: 04/20/24 16:07 Source: patient Mode of arrival: walk-in Limitations: no limitations History of Present Illness HPI narrative: The patient presents to us with a secondary role for evaluation of the rash that he developed on with 3 days ago, the patient's rash with associated hand pain and swelling in the fingers, although yesterday when he was evaluated he only had the rash and some swelling in his upper and lower extremity mostly the hand and toes But the patient mentioned that his feet symptoms got better but his hand symptoms are still there with a rash getting worse in his body, the patient also have a lot of itching he did take only Benadryl 1 time a day and he continues to take the prednisone and Pepcid as needed The patient is complaining of significant pain in his right hand mostly the palmar aspect Related Data Previous Rx's ?Medication ?Instructions ?Recorded methocarbamol 750 mg tablet 750 mg PO TID PRN pain #20 tabs 03/09/23 naproxen sodium 550 mg tablet 550 mg PO BID PRN pain #10 tabs 03/09/23 ibuprofen 800 mg tablet 800 mg PO Q8H PRN pain #20 tabs 08/13/23 famotidine 20 mg tablet (Pepcid) 20 mg PO BID #10 tabs 04/19/24 prednisone 20 mg tablet 40 mg (2 x 20 mg) PO DAILY 3 days 04/19/24 #6 tabs diphenhydramine HCl 25 mg capsule 25 mg PO TID #10 caps 04/20/24 (Benadryl) prednisone 20 mg tablet 20 mg PO DAILY 4 days #4 tabs 04/20/24 Allergies Allergy/AdvReac Type Severity Reaction Status Date / Time codeine AdvReac Intermediate Agitated Verified 08/13/23 11:53 Review of Systems ROS Status of ROS 10 or more systems reviewed and unremarkable except as noted in history and below PFSH PFSH Social History Little interest or pleasure in doing things: not at all Feeling down, depressed, or hopeless: not at all Exam Narrative Exam Narrative: Nurses notes and vital signs reviewed and patient is not hypoxic. Skin examination showed that the patient have a macular rash on the upper body mostly anterior and posterior the patient also was complaining of right hand pain and swelling that mostly to the metacarpophalangeal joint with no significant swelling noted on exam except mildly and the patient had a good normal capillary refill General: Well-appearing and in no apparent distress. Skin: Warm, dry, no pallor noted. No rash. Head: Normocephalic, atraumatic. Neck: Supple, non-tender. Eye: Pupils are equal, round and EOMI. No scleral icterus. Ears, Nose, Mouth, and Throat: TM are clear, no nasal mucosal hypertrophy. Oral mucosa is moist, no posterior oropharynx erythema, uvula is mid-line Cardiovascular: Regular Rate and Rhythm without murmur, gallop or rub. Respiratory: No accessory muscle use or respiratory distress. Lungs are clear to auscultation, no wheezing, rales or rhonchi Chest Wall: no tenderness Back: No midline thoracic or lumbar vertebral tenderness. No CVA tenderness Musculoskeletal: normal ROM, no calf or popliteal tenderness, no lower extremity edema/swelling GI: Abdomen is soft, non-distended. Normal bowel sounds. No masses appreciated. No tenderness to palpation. No rebound, guarding, or rigidity noted. Neurological: A&O x4. No cranial nerve dysfunction observed. No truncal ataxia. Moves all extremities. Sensation intact. Psychiatric: Cooperative and interactive. Normal mood and affect. Constitutional Vital Signs, click to edit/add: Last Vital Signs Temp 97.8 F 04/20/24 16:01 Pulse 87 04/20/24 16:01 Resp 18 04/20/24 16:01 BP 129/75 04/20/24 16:01 Pulse Ox 100 04/20/24 16:01 O2 Del Method Room Air 04/20/24 16:01 Course Vital Signs Vital signs: Vital Signs Temperature 97.8 F 04/20/24 16:01 Pulse Rate 87 04/20/24 16:01 Respiratory Rate 18 04/20/24 16:01 Blood Pressure 129/75 04/20/24 16:01 Pulse Oximetry 100 04/20/24 16:01 Oxygen Delivery Method Room Air 04/20/24 16:01 Temperature 97.8 F 04/20/24 16:01 Pulse Rate 87 04/20/24 16:01 Respiratory Rate 18 04/20/24 16:01 Blood Pressure 129/75 04/20/24 16:01 Pulse Oximetry 100 04/20/24 16:01 Oxygen Delivery Method Room Air 04/20/24 16:01 MDM - Allergic Reaction MDM Narrative Medical decision making narrative: The patient CBC and chemistry showed no acute pathology with the patient ESR and CRP are elevated although right now this is not specific it could be secondary to inflammation The patient also had an x-ray of the right hand that shows no acute pathology and the prelim reading The patient is feeling better after he was treated with Benadryl IV 50 mg he had an increase in his Benadryl to 25 mg 3 times daily for the next 3 days and he was instructed about increasing his prednisone to 60 mg instead of 40 daily the patient to continue hydration and monitoring his symptoms he was instructed about coming back in case of any tongue swelling or any concern for difficulty breathing I did explain to the patient that now the differential also can include angioedema but he need to follow-up with his doctor within few days to make sure that there is further improvement The patient is to follow up with primary care physician in next 2-3 days or to return to the emergency department should any of the signs or symptoms worsen or new symptoms develop. The patient agrees with the following Diagnosis and Treatment plan and the patient will be discharged home. Lab Data Labs: Lab Results 04/20/24 Range/Units 16:37 WBC 9.7 (4.0-11.0) 10^3/uL RBC 4.94 (4.70-6.10) 10^6/uL Hgb 16.4 (14.0-18.0) g/dL Hct 47.1 (42.0-54.0) % MCV 95.3 H (80.0-94.0) fL MCH 33.2 (25.9-34.0) pg MCHC 34.8 (29.9-35.2) g/dL RDW 12.2 (11.0-15.0) % Plt Count 230 (150-450) 10^3/uL MPV 10.2 (9.5-13.5) fL Neut % (Auto) 82.2 H (43.0-75.0) % Lymph % (Auto) 15.2 L (20.5-60.0) % [place] % (Auto) 2.0 (1.7-12.0) % Eos % (Auto) 0.1 L (0.9-7.0) % Baso % (Auto) 0.2 (0.2-2.0) % Neut # (Auto) 8.0 H (1.4-6.5) 10^3/uL Lymph # (Auto) 1.5 (1.2-3.8) 10^3/uL [place] # (Auto) 0.2 L (0.3-0.8) 10^3/uL Eos # (Auto) 0.0 (0.0-0.7) 10^3/uL Baso # (Auto) 0.0 (0.0-0.1) 10^3/uL Abs Immat Gran (auto) 0.03 (0.00-0.03) 10^3/uL Imm/Tot Granulo (auto) 0.3 (0.0-0.5) % ESR 28 H (<=15) mm/hr Sodium 140 (136-145) mmol/L Potassium 4.5 (3.5-5.1) mmol/L Chloride 103 (98-107) mmol/L Carbon Dioxide 28.5 (21.0-32.0) mmol/L Anion Gap 13.0 BUN 9.0 (7.0-18.0) mg/dL Creatinine 1.27 (0.70-1.30) mg/dL Est GFR ( Amer) >60 (>=60 mL/min/1.73m^2) Est GFR (Non-Af Amer) >60 (>=60 mL/min/1.73m^2) BUN/Creatinine Ratio 7.1 Glucose 123 H (74-106) mg/dL Calcium 9.9 (8.5-10.1) mg/dL Total Bilirubin 0.4 (0.2-1.0) mg/dL AST 15 (15-37) U/L ALT 36 (16-63) U/L Alkaline Phosphatase 104 (46-116) U/L C-Reactive Protein 0.93 H (<=0.50) mg/dL Total Protein 7.9 (6.4-8.2) g/dL Albumin 4.2 (3.4-5.0) g/dL Globulin 3.7 g/dL Albumin/Globulin Ratio 1.1 Discharge Plan Discharge Chief Complaint: Allergic Reaction Clinical Impression: Urticaria, Hand edema Patient Disposition: Home, Self-Care Time of Disposition Decision: 17:31 Condition: Good Prescriptions / Home Meds: New diphenhydramine HCl [Benadryl] 25 mg capsule 25 mg PO TID Qty: 10 0RF prednisone 20 mg tablet 20 mg PO DAILY 4 Days Qty: 4 0RF Discontinued diphenhydramine HCl [Benadryl Allergy] 25 mg tablet 25 mg PO TID PRN (Reason: allergic reaction) Qty: 10 0RF No Action naproxen sodium 550 mg tablet 550 mg PO BID PRN (Reason: pain) Qty: 10 0RF methocarbamol 750 mg tablet 750 mg PO TID PRN (Reason: pain) Qty: 20 0RF prednisone 20 mg tablet 40 mg PO DAILY 3 Days Qty: 6 0RF famotidine [Pepcid] 20 mg tablet 20 mg PO BID Qty: 10 0RF ibuprofen 800 mg tablet 800 mg PO Q8H PRN (Reason: pain) Qty: 20 0RF Print Language: Japanese Instructions: Urticaria (ED), Acute Rash (ED) Referrals: [facility] [Primary Care Provider] - 1 week
== END 2024-04-20 17:55 | disposition home or self-care (01) ==
PROVIDERS: Emergency Provider Emergency Medicine
DX: L50.9 Urticaria, unspecified (principal); R60.0 Localized edema
CPT/HCPCS: 36415; 73120; 80053; 85025; 85652; 86140; 96374; 99285; J1200